=== PATIENT | male | born 1935 | race Caucasian/White ===

== ENCOUNTER → 2016-09-11 | Outpatient (CLI) | payer MEDICARE, OTHER ==
[~2016-09-11] MED LIST: ATOR10TA15 PO; Aspirin Ec PO; OMEG1CAP53 PO; OMEP20TA PO; PLAV75TA29 PO; TOPA25TA8 PO
[2016-09-11 09:52] LABS: ALKALINE PHOSPHATASE 47 U/L (45-117); ALT (GPT) 46 U/L (12-78); ANION GAP 8 MEQ/L (5-15); AST (GOT) 26 U/L (15-37); BICARBONATE 27.8 MEQ/L (21.0-32.0); BLOOD UREA NITROGEN 17 MG/DL (7-18); CHLORIDE 105 MEQ/L (98-107); GAMMA GT 134 U/L (15-85); GLOMERULAR FILTRATION RATE 77 ML/MIN (>89); GLUCOSE,FASTING 97 MG/DL (74-99); HDL CHOLESTEROL 51.1 MG/DL (40.0-60.0); LDL CHOLESTEROL 61 MG/DL (0-99); POTASSIUM 4.3 MEQ/L (3.5-5.1); SODIUM (NA) 141 MEQ/L (136-145)
== END ==
LOC: PLAB 06:33
PROVIDERS: ATTEND Urology
DX: R97.20 Elevated prostate specific antigen [PSA] (principal); E78.5 Hyperlipidemia, unspecified; Z51.81 Encounter for therapeutic drug level monitoring
CPT/HCPCS: 36415; 80053; 80061; 82977; 84153